=== PATIENT | male | born 1965 | race Caucasian/White ===

== ENCOUNTER 2017-04-28 09:01 | Emergency (ER) | payer BC, OTHER ==
[~2017-04-28] VITALS: Ht 172.7 cm; Wt 101.7 kg
[2017-04-28 09:12] VITALS: TEMP 36.7; Ht 172.7 cm; Wt 101.7 kg
--- NOTE | 2017-04-28 09:23 | EMERGENCY ROOM VISIT NOTE ---
History First contact with patient: 09:18 Chief Complaint: FALL Stated Complaint: FELL OFF TRUCK,BACK SHOULDER HEAD ANKLE PAIN History of Present Illness The patient is a 51 year old male who presents to the Emergency Room with complaints of lower back pain, right shoulder and ankle pain. Occurred around 7am. Fell off the back of a truck onto concrete. Landed on his back. Cushioned his head with his right hand. Pain severity 10/10 in back (central, no radiation , worse when sitting/lying down). Right shoulder - severity 6/10 on movement especially abduction beyond 90 degrees. Right ankle - severity 4/10, lateral side of ankle, worse with walking but he has been able to walk on it. He denies any urine or bowel incontinence, weakness or change in sensation in his legs. He denies any headache, neck pain, loss of consciousness, change in voice, change in hearing, change in vision. Review of Systems See HPI for pertinent positives & negatives. A total of 10 systems reviewed and were otherwise negative. Past Medical/Surgical History Medical Problems: (1) Emphysema lung Family History Cancer Diabetes Social History Smoking Status: Never Smoker Current/Historical Medications No Active Prescriptions or Reported Meds Allergies Coded Allergies: No Known Allergies (Unverified , 04/28/17) Physical Exam Vital Signs Date Time Temp Pulse Resp B/P (MAP) Pulse Ox O2 Delivery O2 Flow Rate FiO2 04/28/17 11:07 45 20 131/80 98 Room Air 04/28/17 09:12 36.7 70 17 122/73 97 Room Air Physical Exam VITAL SIGNS: were reviewed as above GENERAL: no acute distress SKIN: Warm dry and pink, no rashes HEAD: Normocephalic and atraumatic. No significant hematoma or swelling. EARS: B/L TM pearly synder with normal light reflex, EYES: Extraocular muscles intact, pupils equal and reactive to light OROPHARYNX: non erythematous, moist mucus membranes NECK: no adenopathy, no central spinal tenderness/swelling/ecchymosis LUNGS: No respiratory distress, clear to auscultation, no accessory muscle use HEART: Regular rate and rhythm, heart sounds 1+2, no murmurs ABDOMEN: Soft and nontender, bowel sounds normal BACK: central spinal tenderness at L4 level, otherwise unremarkable, no CVA tenderness. EXTREMITIES: Warm and well perfused, no calf tenderness/swelling, no pedal edema. Right shoulder - Full ROM but painful abduction beyond 90 degrees, No significant swelling or ecchymosis, pain on palpation 1cm inferior and 1cm lateral to acromion process. Otherwise unremarkable examination of shoulder. Right ankle - Achilles intact, posterior ankle mild swelling, mild pain on palpation over lateral malleolus (the majority of his pain is posterior to this) . Otherwise full ROM and unremarkable examination of ankle. Normal right knee appearance, no pain on palpation, full ROM B/L hip examination: no pain on palpation, no pain on internal external rotation of hips with no restriction to ROM. NEUROLOGICALLY: Awake alert and oriented. Cranial nerves 2-12 intact. Cerebellar testing is within normal limits. There is no nystagmus. There is no facial droop. Speech is clear. Vision is grossly normal. Upper and lower limb motor and sensory examination normal but somewhat limited due to his pain ( mainly back). Medical Decision & Procedures ER Provider Diagnostic Interpretation: RIGHT SHOULDER 3 VIEWS CLINICAL HISTORY: Fall with right shoulder pain. FINDINGS: 3 views of the right shoulder are obtained. No prior studies are available for comparison at the time of dictation. The skeletal structures are well mineralized. No fracture or dislocation is seen. Minimal productive degenerative change is seen at the acromioclavicular joint. The glenohumeral articulation is preserved. The overlying soft tissues are within normal limits. The imaged right upper lobe lung parenchyma appears clear. IMPRESSION: No fracture or dislocation is seen in the right shoulder. Electronically signed by: Kp Owens M.D. 04/28/2017 10:18 AM LUMBAR SPINE 3 VIEWS CLINICAL HISTORY: Fall with low back pain. FINDINGS: AP, lateral, and coned-down views of the lumbar spine are obtained. No prior studies are available for comparison at the time of dictation. The skeletal structures are well mineralized. There is no radiographic evidence of fracture or malalignment. Vertebral body height and alignment are maintained. The transverse and spinous processes are intact. Small anterior osteophytes are seen throughout. The intervertebral disc spaces are well-maintained. The visualized bony pelvis appears intact. There is a nonobstructed abdominal bowel gas pattern. IMPRESSION: No acute bony abdomen the is seen involving the lumbosacral spine. Electronically signed by: Kp Owens M.D. 04/28/2017 10:37 AM Dictated Date/Time: 04/28/2017 10:35 AM Dictated Date/Time: 04/28/2017 10:17 AM RIGHT ANKLE 3 VIEWS CLINICAL HISTORY: Fall with right ankle pain. FINDINGS: 3 views of the right ankle are obtained. No prior studies are available for comparison at the time of dictation. The skeletal structures are well mineralized. No fracture is seen. The ankle mortise is intact. Degenerative spurring is seen from the anterior and posterior tibial plafond. There is a dorsal calcaneal enthesophyte. Bony overgrowth is noted along the inferior aspect of the medial malleolus. No joint effusion is identified. Mild soft tissue swelling is present in the calf and around ankle. IMPRESSION: Soft tissues swelling with no radiographic evidence of right ankle fracture. Electronically signed by: Kp Owens M.D. 04/28/2017 10:38 AM Dictated Date/Time: 04/28/2017 10:37 AM Medications Administered Medications (Trade) Dose Ordered Sig/Simon Route Start Time Stop Time Status Last Admin Dose Admin Acetaminophen (Tylenol Tab) 1,000 mg NOW STAT PO 04/28/17 10:50 04/28/17 10:51 DC 04/28/17 11:05 1,000 MG Ibuprofen (Motrin Tab) 600 mg NOW STAT PO 04/28/17 10:50 04/28/17 10:51 DC 04/28/17 11:04 600 MG ED Course 09:26 Complete history and physical performed 10:[address] Torres who separately performed history and physical 10:56 Reassessed patient. Discussed negative x-ray findings. Recommended to follow up with his primary care physician Medical Decision Prior records/ancillary studies reviewed. Triage Nursing notes reviewed. Additional history obtained from patient The patient's history was concerning for back/shoulder/ankle pain. Differential diagnosis: Etiologies such as intracranial hemorrhage, subdural hematoma, musculoskeletal injuries, disc herniation, fracture, aortic disease, metastatic disease, cord compression, discitis, infection, renal colic, gastrointestinal, acute exacerbation of chronic back pain, sciatica, cauda equina, as well as others were entertained. Physical findings: As above. No focal neurologic findings noted. ER treatment provided: Acetaminophen 1000mg PO Ibuprofen 600mg PO On reassessment the patient felt better. Imaging studies: XR right ankle/shoulder and lumbar spine - negative for acute fracture This appears to be consistent with soft tissue injuries. Imaging showed no fractures and the patient's physical examination and detailed history did not reveal any red flags intracranial bleed or back pain. Therefore advanced diagnostics and consultations were felt to be unwarranted. By the evaluation outlined above emergent etiologies such as intracranial hemorrhage, subdural hematoma, fracture, aortic disease, metastatic disease, infection, renal colic, gastrointestinal, cord compression, cauda equina, as well as others were deemed relatively unlikely. The patient was informed about the findings as listed above. All questions were answered and he was pleased with the treatment. Return instructions were outlined and the patient was discharged in stable condition. Referral: The patient was referred back to his primary care physician for follow-up in 2 to 3 days for a recheck of the current condition. He told to return is worsening headache, vomiting more than once, change in voice, change in hearing , change in vision, focal weakness or change in sensation. Impression Primary Impression: Contusion of multiple sites Additional Impression: Fall Departure Information Dispostion Home / Self-Care Condition FAIR Prescriptions No Active Prescriptions or Reported Meds Referrals No Doctor, Assigned (PCP) Patient Instructions [facility] Additional Instructions Take Ibuprofen (600mg every 6 hours as required) or Tylenol (1000mg every 8 hours as required) as directed as needed for pain. Use ice 5 to 6 times a day for 30 to 40 minutes for 5 days to help with pain and swelling. Make an appointment with an orthopedic surgeon if sprain does not get better in 7 to 10 days. If you have increasing pain and swelling, come back to Emergency Department. Resident Tracking Resident Involvement: Resident Care Provided Care Provided: Adult ED Problem Qualifiers Additional Impression: Fall Encounter type: initial encounter Qualified Codes: W19.XXXA - Unspecified fall, initial encounter
--- NOTE | 2017-04-28 10:19 | DIAGNOSTIC IMAGING REPORT ---
RIGHT SHOULDER 3 VIEWS CLINICAL HISTORY: Fall with right shoulder pain. FINDINGS: 3 views of the right shoulder are obtained. No prior studies are available for comparison at the time of dictation. The skeletal structures are well mineralized. No fracture or dislocation is seen. Minimal productive degenerative change is seen at the acromioclavicular joint. The glenohumeral articulation is preserved. The overlying soft tissues are within normal limits. The imaged right upper lobe lung parenchyma appears clear. IMPRESSION: No fracture or dislocation is seen in the right shoulder. Electronically signed by: Kp Owens M.D. 04/28/2017 10:18 AM Dictated Date/Time: 04/28/2017 10:17 AM
--- NOTE | 2017-04-28 10:38 | DIAGNOSTIC IMAGING REPORT ---
LUMBAR SPINE 3 VIEWS CLINICAL HISTORY: Fall with low back pain. FINDINGS: AP, lateral, and coned-down views of the lumbar spine are obtained. No prior studies are available for comparison at the time of dictation. The skeletal structures are well mineralized. There is no radiographic evidence of fracture or malalignment. Vertebral body height and alignment are maintained. The transverse and spinous processes are intact. Small anterior osteophytes are seen throughout. The intervertebral disc spaces are well-maintained. The visualized bony pelvis appears intact. There is a nonobstructed abdominal bowel gas pattern. IMPRESSION: No acute bony abdomen the is seen involving the lumbosacral spine. Electronically signed by: Kp Owens M.D. 04/28/2017 10:37 AM Dictated Date/Time: 04/28/2017 10:35 AM
--- NOTE | 2017-04-28 10:40 | DIAGNOSTIC IMAGING REPORT ---
RIGHT ANKLE 3 VIEWS CLINICAL HISTORY: Fall with right ankle pain. FINDINGS: 3 views of the right ankle are obtained. No prior studies are available for comparison at the time of dictation. The skeletal structures are well mineralized. No fracture is seen. The ankle mortise is intact. Degenerative spurring is seen from the anterior and posterior tibial plafond. There is a dorsal calcaneal enthesophyte. Bony overgrowth is noted along the inferior aspect of the medial malleolus. No joint effusion is identified. Mild soft tissue swelling is present in the calf and around ankle. IMPRESSION: Soft tissues swelling with no radiographic evidence of right ankle fracture. Electronically signed by: Kp Owens M.D. 04/28/2017 10:38 AM Dictated Date/Time: 04/28/2017 10:37 AM
[2017-04-28] MEDS ORDERED: IBUPROFEN 600 MG TAB PO STA (10:50)
[2017-04-28] MEDS ORDERED: ACETAMINOPHEN 500 MG TAB PO STA (10:50)
--- NOTE | 2017-04-28 11:01 | EMERGENCY ROOM VISIT NOTE ---
ED Visit Note First contact with patient: 09:18 Resident Physician Supervision Note: I interviewed and examined the patient. Discussed with and agree with findings and plan as documented in the note. Any exceptions or clarifications are listed here: [None] Documented By: Zeke Torres
[2017-04-28 11:07] VITALS: BP 131/80; PULSE 45; O2SAT 98
== END 2017-04-28 11:24 | disposition home or self-care (01) ==
LOC: C.EDB 09:03
DX: T14.8 Other injury of unspecified body region (principal); W17.89XA Other fall from one level to another, initial encounter; Z80.9 Family history of malignant neoplasm, unspecified; Z83.3 Family history of diabetes mellitus